=== PATIENT | female | born 1970 | race Caucasian/White ===

== ENCOUNTER 2020-06-15 12:37 | Emergency (ER) | payer MEDICAID ==
[~2020-06-15] VITALS: Ht 165.1 cm; Wt 65.8 kg
--- NOTE | 2020-06-15 12:56 | NUR ---
ED Nurse Note: pt presents to ED via EMS arrival [facility] AP58 for a behavioral complaint. pt states that she has thoughts of SI but denies a plan or HI at this time. pt states that she has been feeling this way for "a long time" and has also been off of her meds for "a long time." pt is also c/o suprapubic abd px, denies any urinary complaints at this time. is calm and cooperative on exam, AOx4
[2020-06-15 12:58] VITALS: BP 144/92
--- NOTE | 2020-06-15 13:05 | NUR ---
ED Nurse Note: R AC 20' IV line established, blood and urine specimen collected and sent to lab.
--- NOTE | 2020-06-15 13:06 | NUR ---
ED Nurse Note: pt is in bed talking to self, occasionally yelling "leave me the F*ck alone!" when no one else is in the room. pt asked for and was provided with a meal, and some water- tolerated well without complaints of pain or N/V/D
[2020-06-15 13:12] LABS: BASOPHILS % (AUTO) 1.1 % (0.0-2.0); EOSINOPHILS % (AUTO) 2.3 % (0.0-3.0); HEMATOCRIT 46.2 % (37.0-47.0); HEMOGLOBIN 14.9 G/DL (12.0-16.0); LYMPHOCYTES % (AUTO) 22.9 % (20.0-45.0); MEAN CORPUSCULAR VOLUME 99 FL (80-99); MONOCYTES % (AUTO) 8.5 % (1.0-10.0); NEUTROPHILS % (AUTO) 65.3 % (45.0-75.0); PLATELET COUNT 347 K/UL (150-450); RED BLOOD COUNT 4.67 M/UL (4.20-5.40); RED CELL DISTRIBUTION WIDTH 12.7 % (11.6-14.8); WHITE BLOOD COUNT 11.7 K/UL (4.8-10.8)
[2020-06-15 13:20] LABS: ANION GAP 7 mmol/L (5-15); BLOOD UREA NITROGEN 16 mg/dL (7-18); CALCIUM 8.9 MG/DL (8.5-10.1); CARBON DIOXIDE 28 MMOL/L (21-32); CHLORIDE 105 MMOL/L (98-107); CREATININE 0.9 MG/DL (0.55-1.30); POTASSIUM 4.7 MMOL/L (3.5-5.1); SODIUM 140 MMOL/L (136-145)
[2020-06-15 13:24] LABS: ALANINE AMINOTRANSFERASE 18 U/L (12-78); ALBUMIN 3.7 G/DL (3.4-5.0); ALKALINE PHOSPHATASE 97 U/L (46-116); ASPARTATE AMINO TRANSFERASE 17 U/L (15-37); BILIRUBIN,TOTAL 0.3 MG/DL (0.2-1.0)
--- NOTE | 2020-06-15 13:27 | NUR ---
ED Nurse Note: pt loudly crying in bed, when asked what's wrong she just shakes her head and stops crying but occasionally starts loudly wailing again
--- NOTE | 2020-06-15 13:30 | NUR ---
Note undone in EDM - 06/15/20 at 1330 by [facility] ER DISCHARGE NOTE: Patient is cleared to be discharged per ERMD, pt is aox4, on room air, with stable vital signs. pt was given dc and prescription instructions, pt was able to verbalize understanding, pt id band removed without complications. pt is able to ambulate with steady gait. pt took all belongings.
[2020-06-15] MEDS ORDERED: DiphenhydrAMINE 50mg/ml Inj ONE (13:40)
[2020-06-15] MEDS ORDERED: DiphenhydrAMINE 50mg/ml Inj IVP ONE ×2 (13:45)
--- NOTE | 2020-06-15 13:46 | Emergency Room Report ---
History of Present Illness General Chief Complaint: Behavioral Complaint Source: Patient, EMS (Monie Graham) Present Illness HPI 50-year-old female with unknown psychiatric history brought in by paramedics due to "wanting to see a doctor and be checked out.". Patient arrives to ED crying, reports that she used to take Zyprexa however has not taken in a long time. Patient does not know for which diagnosis she was given Zyprexa. Denies any suicidal homicidal ideation. Patient appears to be under the influence of an unknown stimulant. At this time patient is a poor historian. Also complains of suprapubic pain and urinary frequency. Denies any nausea (Monie Graham) Allergies: Coded Allergies: No Known Allergies (Unverified , 06/15/20) COVID-19 Screening COVID-19 risk:Contact w/high r: No Has patient experienced schwartz: No COVID-19 Testing performed ELECTRONIC GLUER: No (Monie Graham) Patient History Past Medical History: see triage record Past Surgical History: unable to obtain Family History: unable to obtain Now: No Reviewed Nursing Documentation: PMH: Agreed; PSxH: Agreed (Monie Graham) Nursing Documentation-PMH History Of Psychiatric Problem: Yes (Monie Graham) Review of Systems All Other Systems: negative except mentioned in HPI (Monie Graham) Physical Exam Vital Signs Date Time Temp Pulse Resp B/P (MAP) Pulse Ox O2 Delivery O2 Flow Rate FiO2 06/15/20 12:32 97.7 80 16 144/92 (109) 98 Room Air Sp02 EP Interpretation: reviewed, normal General Appearance: alert/responsive, no apparent distress Head: atraumatic Eyes: PERRL, lids + conjunctiva normal ENT: hearing intact, no angioedema Neck: supple/symm/no masses, no meningismus Respiratory: effort normal, no wheezing, chest symmetrical Cardiovascular: regular rate, rhythm, no edema Gastrointestinal: non-tender Musculoskeletal: gait & station normal Neurologic: oriented x3, sensory intact, normal speech Psychiatric: no suicidal/homicidal ideation, anxious Skin: no rash Lymphatic: normal inspection (Monie Graham) Medical Decision Making PA Attestation All my diagnosis and treatment plans were reviewed ad discussed with my supervising physician Dr. Scott (Monie Graham) Diagnostic Impression: Primary Impression: Schizophrenia Additional Impressions: Cocaine abuse Methamphetamine abuse ER Course 50-year-old female with unknown psychiatric history brought in by paramedics due to "wanting to see a doctor and be checked out.". Patient arrives to ED crying, reports that she used to take Zyprexa however has not taken in a long time. Patient does not know for which diagnosis she was given Zyprexa. Denies any suicidal homicidal ideation. Patient appears to be under the influence of an unknown stimulant. At this time patient is a poor historian. Also complains of suprapubic pain and urinary frequency. Denies any nausea Ddx considered but are not limited to: generalized anxiety disorder, panic attack, depression with psychotic feature, bipolar disorder, drug overdose Vital signs: are WNL, pt. is afebrile H&PE are most consistent with: schizophrenia, cocaine and methamphetamine abuse ORDERS: Psychiatric order set ED INTERVENTIONS: zyprexa, benadryl Patient is medically cleared Patient was transferred to psychiatric facility with diagnosis of self-destruct tae behavior, schizophrenia to Dr. under supervision of .: Sonia pt stable at time of transfer (Monie Graham) ER Course Assumed care of the patient from the previous provider at approximately 2200 hrs. Please refer to initial note for full history and physical exam. Briefly, this 50-year-old female with unspecified psychiatric history previously taking Zyprexa presenting for medical evaluation. Found to be under the influence of amphetamines and cocaine. Labs otherwise within normal limits. Patient was awaiting voluntary transfer to psychiatric facility. (Ludwin Sood MD) Last Vital Signs Date Time Temp Pulse Resp B/P (MAP) Pulse Ox O2 Delivery O2 Flow Rate FiO2 06/15/20 12:58 97.7 82 16 144/92 98 Room Air (Monie Graham) Disposition: ELOPED Condition: Stable Monie Graham Jun 15, 2020 13:46 Ludwin Sood MD Jun 16, 2020 02:21
[2020-06-15 14:57] VITALS: BP 137/89
--- NOTE | 2020-06-15 14:58 | NUR ---
ED Nurse Note: pt appears to be sleeping in bed at this time, no acute distress is noted. pt has safety and SI precautions in place. will cont to monitor
[2020-06-15 17:47] VITALS: BP 136/88
--- NOTE | 2020-06-15 19:07 | NUR ---
ED Nurse Note: Report received form RAGHAVENDRA [facility] Patient asleep on bed
[2020-06-15 19:30] VITALS: BP 134/85
--- NOTE | 2020-06-15 23:00 | NUR ---
ED Nurse Note: Called [facility] and [facility] but no bed available as of the moment
[2020-06-16 00:10] VITALS: BP 131/87
--- NOTE | 2020-06-16 00:10 | NUR ---
ED Nurse Note: Patient asleep on bed. Provided a safe environment for the patient
--- NOTE | 2020-06-16 02:00 | NUR ---
ED Nurse Note: Patient woke up shouting and responding to internal stimuli. Patient became verbally abusive but was pacified by RN and ERMD. Food and drinks provided.
[2020-06-16 02:34] VITALS: BP 131/83
--- NOTE | 2020-06-16 03:29 | NUR ---
ED Nurse Note: Changed pts beddings and clothes, patient on bed resting. Will continue to monitor changes in behavior.
[2020-06-16 05:00] VITALS: BP 128/83
--- NOTE | 2020-06-16 05:00 | NUR ---
ED Nurse Note: Patient asleep on bed. Provided a safe environment
--- NOTE | 2020-06-16 06:51 | NUR ---
ED Nurse Note: Patient awake on bed. Denies SI/HI, AH/VH as of the moment. Cooperatively answered all questions asked.
[2020-06-16 06:53] VITALS: BP 128/74
[2020-06-16 07:54] VITALS: BP 126/72
--- NOTE | 2020-06-16 07:59 | NUR ---
ED Nurse Note: Received report from BRETT Torres for continuity of care. Pt on bed, asleep, no acute distress noted. safety measures in placed; will continue monitoring pt.
--- NOTE | 2020-06-16 09:07 | NUR ---
ED Nurse Note: IV site removed by RN without complications. Pt on bed, awake, crying, verbalized, "I wanted to go outside and smoke!!" nurse reminded pt that the hospital is a non-smoking facility. Offered orange juice as pt requested.
[2020-06-16 09:20] VITALS: BP 128/76
--- NOTE | 2020-06-16 09:20 | NUR ---
ED Nurse Note: Pt insisted to go out from her room, RN with pt all times, instructed pt not to leave but pt verbalized, "You don't have to give me instructions!! Just give me my clothes and shoes!" Pt shouting, unable to remain calm, agitated, pt walked out from her room unable to cooperate to care
--- NOTE | 2020-06-16 09:20 | NUR ---
ED Nurse Note: PT. REFUSED TO SIGNED AMA FORMS. ERMD AWARE THAT PT. LEFT
== END 2020-06-16 09:20 | disposition left against medical advice (07) ==
LOC: EDBD 12:37 → EMR 13:12
DX: F14.10 Cocaine abuse, uncomplicated (principal); F15.90 Other stimulant use, unspecified, uncomplicated; F20.9 Schizophrenia, unspecified
CPT/HCPCS: 36415; 80053; 80307; 81025; 85025; G0480; G0481; J1200; U0002; Z7502; 99284